=== PATIENT | female | born 1990 | race Caucasian/White ===

== ENCOUNTER 2017-06-12 11:48 | Emergency (ER) | payer MEDICAID ==
[2017-06-12 11:57] VITALS: TEMP 98.1
--- NOTE | 2017-06-12 12:29 | EDPHY ---
H & P Time Seen by Provider: 06/12/17 12:28 HPI/ROS: Chief complaint. Abdominal pain HPI. 26-year-old female with chronic abdominal pain. She has had abdominal pain since 4:00 a.m.. She has low abdominal pressure maybe radiating to her low back. Nausea without vomiting or diarrhea. She has been constipated the last several days. Denies urinary symptoms. No fever. She does however feel hot and cold sensation. Symptoms are worse with lying on her side. She says it is similar to previous endometriosis. Apparently she had endometriosis surgery in November. Denies chest discomfort or trouble breathing ROS Constitutional. no fever/chills, no weakness Eyes. no problems with vision ENT. no sore throat, no nasal drainage Cardiovascular. no chest pain Respiratory. no shortness of breath, no cough Abdominal. Abdominal pain with nausea . no problems urinating MS. no calf pain/swelling, no neck/back pain, no joint pain Skin. no rash Lymph. no swollen glands Neuro. no headache, no dizziness, no difficulty walking or with speech Past Medical/Surgical History: Endometriosis, chronic back pain, pancreatitis with stent, cholecystectomy Social History: Single, daily smoker, no alcohol Smoking Status: Current every day smoker Physical Exam: General Appearance: Alert well-developed female mild distress vital signs show initial blood pressure 168/134 however his recheck and found to be 116/74. Eyes: Pupils equal and round no pallor or injection. ENT, Mouth: Mucous membranes are moist. Respiratory: There are no retractions, lungs are clear to auscultation. Cardiovascular: Regular rate and rhythm. Gastrointestinal: Abdomen is soft with suprapubic tenderness. No masses. Normal bowel sounds Neurological: Awake and alert, sensory and motor exams grossly normal. Skin: Warm and dry, no rashes. Musculoskeletal: Neck is supple nontender. Extremities symmetrical, full range of motion. Psychiatric: Patient is oriented X 3, there is no agitation. Constitutional: Initial Vital Signs Temperature (C) 36.7 C 06/12/17 11:55 Heart Rate 82 06/12/17 11:55 Respiratory Rate 18 06/12/17 11:55 Blood Pressure 168/134 H 06/12/17 11:55 O2 Sat (%) 97 06/12/17 11:55 O2 Delivery Mode Room Air Allergies/Adverse Reactions: cyclobenzaprine [From Flexeril] Allergy (Verified 06/12/17 11:54) Home Medications: Medication Instructions Recorded Ativan 06/12/17 Ondansetron Odt [Zofran Odt] 4 mg PO Q4PRN PRN #4 tab 06/12/17 Medical Decision Making Procedures: IV normal saline. Toradol and Zofran IV I tried to look up the patient on corhio but I was unable to access the site. ED Course/Re-evaluation: Re-evaluation at 2:00 p.m.. Patient's blood pressure is 152/110. The patient is now in the room. The , the patient, and I discussed laboratory evaluation, imaging study results. We discussed treatment plan including recommendation for follow-up for blood pressure control as well as further evaluation of endometriosis and abdominal pain. We had a long conversation about why is the blood pressure elevated and we talked about various causes of situational verses essential and chronic hypertension. She had told me that she had hypertension with . The patient is unhappy with the way the ultrasound was performed, she is unhappy that I have not recommended medication to control her blood pressure today, she is also unhappy that I have not given her narcotics for her abdominal pain but her abdominal pain was treated with Toradol. Patient then fired me and asked me to leave the room. We will have the patient rep see the patient Differential Diagnosis: This appears to be chronic abdominal pain. She tells me she has had a history of endometriosis. The workup shows no evidence for ectopic , ovarian cyst or torsion. She does not have urinary tract infection. She has been somewhat constipated over the last few days and some of this may be constipation. The patient's blood pressure is elevated and I tried to explain to the patient and that a goal is blood pressure control and re- evaluation over the next 1-2 weeks. I do not think that the patient requires blood pressure medication today. There is no evidence for acute abdomen - Data Points Laboratory Results: Laboratory Results 06/12/17 12:05 06/12/17 12:05 06/12/17 06/12/17 06/12/17 12:05 12:05 12:05 WBC RBC Hgb Hct MCV MCH MCHC RDW Plt Count MPV Neut % (Auto) Lymph % (Auto) Seward % (Auto) Eos % (Auto) Baso % (Auto) Nucleat RBC Rel Count Absolute Neuts (auto) Absolute Lymphs (auto) Absolute Monos (auto) Absolute Eos (auto) Absolute Basos (auto) Absolute Nucleated RBC Immature Gran % Immature Gran # Sodium 142 mEq/L mEq/L (135-145) Potassium 4.0 mEq/L mEq/L (3.5-5.2) Chloride 106 mEq/L mEq/L (97-110) Carbon Dioxide 25 mEq/l mEq/l (22-31) Anion Gap 11 mEq/L mEq/L (8-16) BUN 10 mg/dL mg/dL (7-23) Creatinine 0.6 mg/dL mg/dL (0.6-1.0) Estimated GFR > 60 Glucose 82 mg/dL mg/dL (70-100) Calcium 9.5 mg/dL mg/dL (8.5-10.4) Total Bilirubin 0.5 mg/dL mg/dL (0.1-1.4) Conjugated Bilirubin 0.5 mg/dL mg/dL (0.0-0.5) Unconjugated Bilirubin 0.0 mg/dL mg/dL (0.0-1.1) AST 26 IU/L IU/L (14-46) ALT 35 IU/L IU/L (9-52) Alkaline Phosphatase 132 IU/L H IU/L (38-126) Total Protein 7.3 g/dL g/dL (6.3-8.2) Albumin 4.2 g/dL g/dL (3.5-5.0) Lipase 126 IU/L IU/L (23-300) Beta HCG, Qual NEGATIVE Urine Color PALE YELLOW Urine Appearance CLEAR Urine pH 6.0 (5.0-7.5) Ur Specific Herrick 1.009 (1.002-1.030) Urine Protein NEGATIVE (NEGATIVE) Urine Ketones NEGATIVE (NEGATIVE) Urine Blood NEGATIVE (NEGATIVE) Urine Nitrate NEGATIVE (NEGATIVE) Urine Bilirubin NEGATIVE (NEGATIVE) Urine Urobilinogen NEGATIVE EU EU (0.2-1.0) Ur Leukocyte Esterase NEGATIVE (NEGATIVE) Urine RBC NONE SEEN /hpf /hpf (0-3) Urine WBC 1-3 /hpf /hpf (0-3) Ur Epithelial Cells TRACE /lpf /lpf (NONE-1+) Urine Glucose NEGATIVE (NEGATIVE) 06/12/17 12:05 WBC 11.51 10^3/uL H 10^3/uL (3.80-9.50) RBC 5.54 10^6/uL H 10^6/uL (4.18-5.33) Hgb 15.8 g/dL g/dL (12.6-16.3) Hct 47.3 % H % (38.0-47.0) MCV 85.4 fL fL (81.5-99.8) MCH 28.5 pg pg (27.9-34.1) MCHC 33.4 g/dL g/dL (32.4-36.7) RDW 13.1 % % (11.5-15.2) Plt Count 337 10^3/uL 10^3/uL (150-400) MPV 10.0 fL fL (8.7-11.7) Neut % (Auto) 54.1 % % (39.3-74.2) Lymph % (Auto) 32.9 % % (15.0-45.0) Seward % (Auto) 8.8 % % (4.5-13.0) Eos % (Auto) 3.5 % % (0.6-7.6) Baso % (Auto) 0.4 % % (0.3-1.7) Nucleat RBC Rel Count 0.0 % % (0.0-0.2) Absolute Neuts (auto) 6.23 10^3/uL 10^3/uL (1.70-6.50) Absolute Lymphs (auto) 3.79 10^3/uL H 10^3/uL (1.00-3.00) Absolute Monos (auto) 1.01 10^3/uL H 10^3/uL (0.30-0.80) Absolute Eos (auto) 0.40 10^3/uL 10^3/uL (0.03-0.40) Absolute Basos (auto) 0.05 10^3/uL 10^3/uL (0.02-0.10) Absolute Nucleated RBC 0.00 10^3/uL 10^3/uL (0-0.01) Immature Gran % 0.3 % % (0.0-1.1) Immature Gran # 0.03 10^3/uL 10^3/uL (0.00-0.10) Sodium Potassium Chloride Carbon Dioxide Anion Gap BUN Creatinine Estimated GFR Glucose Calcium Total Bilirubin Conjugated Bilirubin Unconjugated Bilirubin AST ALT Alkaline Phosphatase Total Protein Albumin Lipase Beta HCG, Qual Urine Color Urine Appearance Urine pH Ur Specific Herrick Urine Protein Urine Ketones Urine Blood Urine Nitrate Urine Bilirubin Urine Urobilinogen Ur Leukocyte Esterase Urine RBC Urine WBC Ur Epithelial Cells Urine Glucose Medications Given: Discontinued Medications Sodium Chloride (Ns) 1,000 mls @ 0 mls/hr IV EDNOW ONE; Wide Open PRN Reason: Protocol Stop: 06/12/17 12:48 Last Admin: 06/12/17 13:10 Dose: 1,000 mls Ketorolac Tromethamine (Toradol) 30 mg IVP EDNOW ONE Stop: 06/12/17 12:48 Last Admin: 06/12/17 13:10 Dose: 30 mg Ondansetron HCl (Zofran) 4 mg IVP EDNOW ONE Stop: 06/12/17 12:48 Last Admin: 06/12/17 13:10 Dose: 4 mg Departure - Departure Disposition: Home, Routine, Self-Care Clinical Impression: Abdominal pain Qualifiers: Abdominal location: unspecified location Qualified Code(s): R10.9 - Unspecified abdominal pain Condition: Good Instructions: Abdominal Pain (ED) Additional Instructions: You're blood pressure is elevated today. It needs to be rechecked and you may require blood pressure medication. Please see you're healthcare provider in the next 5-7 days for blood pressure check. Laboratory and ultrasound are normal today. This could be from endometriosis. Please use ibuprofen 600 mg every 6 hr for pain and Tylenol 1000 mg every 6 hr for pain. Also I will write you a prescription for Zofran for nausea if necessary. Return for worsening pain, fever, vomiting. Recheck in 1-2 days for continuing symptoms. I will also give you the name of local wind energy technician for follow-up if you are unable to see your regular healthcare provider. Referrals: Walter Roberson MD [Medical Doctor] - As per Instructions [facility] [Other] - 1 day, if not improved Prescriptions: Ondansetron Odt [Zofran Odt] 4 mg PO Q4PRN PRN #4 tab PRN Reason: Nausea/Vomiting, Use 1st
[2017-06-12] MEDS ORDERED: ONDANSETRON 4 MG/2 ML VIAL IVP ONE (12:47)
[2017-06-12] MEDS ORDERED: KETOROLAC 30 MG/1 ML SDV IVP ONE (12:47)
[2017-06-12] MEDS ORDERED: NS 1,000 ML IV ONE (12:47)
[2017-06-12 12:58] LABS: PLATELET COUNT 337 10^3/uL (150-400)
[2017-06-12 13:48] VITALS: RESP 24
[2017-06-12 14:32] VITALS: BP 148/100; PULSE 90; O2SAT 100
== END 2017-06-12 14:33 | disposition home or self-care (01) ==
LOC: MERGE 11:48
DX: R10.9 Unspecified abdominal pain (principal); E86.9 Volume depletion, unspecified; F17.200 Nicotine dependence, unspecified, uncomplicated; Z90.49 Acquired absence of other specified parts of digestive tract
CPT/HCPCS: 96374; J1885; J2405